=== PATIENT | male | born 1960 | race Caucasian/White ===

== ENCOUNTER → 2017-08-31 | Outpatient (CLI) | payer OTHER ==
[~2017-08-31] MED LIST: ACET-1311 PO; CPR500 PO; OXYC-57 PO
[2017-08-31 18:06] LABS: BASO % 0.3 %; BASO ABS # 0.02 K/uL (0-0.2); EOS % 1.7 %; HEMATOCRIT 43.9 % (42-52); HEMOGLOBIN 14.7 g/dL (14.0-18.0); IG# 0.01 K/uL (0.00-0.02); LYMPH % 29.5 %; LYMPH ABS # 1.79 K/uL (1.2-3.4); MEAN CELL VOLUME 87.6 fL (80-100); MEAN CORPUSCULAR HEMOGLOBIN 29.3 pg (25-34); MEAN CORPUSCULAR HGB CONC 33.5 g/dl (32-36); MEAN PLATELET VOLUME 10.8 fL (7.4-10.4); MONO % 9.6 %; MONO ABS # 0.58 K/uL (0.11-0.59); NEUT % 58.7 %; NEUT ABS # 3.56 K/uL (1.4-6.5); PLATELET COUNT 245 K/uL (130-400); RED CELL DISTRIBUTION WIDTH CV 12.9 % (11.5-14.5); RED CELL DISTRIBUTION WIDTH SD 41.1 fL (36.4-46.3); WHITE BLOOD COUNT 6.06 K/uL (4.8-10.8)
[2017-08-31 18:32] LABS: ALBUMIN 3.6 gm/dl (3.4-5.0); ALT/SGPT 52 U/L (12-78); AST/SGOT 33 U/L (15-37); BLOOD UREA NITROGEN 22 mg/dl (7-18); CALCIUM 8.7 mg/dl (8.5-10.1); CARBON DIOXIDE 26 mmol/L (21-32); CREATININE 1.35 mg/dl (0.60-1.40); GLUCOSE 87 mg/dl (70-99); POTASSIUM 4.2 mmol/L (3.5-5.1); SODIUM 140 mmol/L (136-145)
[2017-08-31 18:42] LABS: ALKALINE PHOSPHATASE 64 U/L (45-117); TOTAL PROTEIN 7.2 gm/dl (6.4-8.2)
== END | disposition home or self-care (01) ==
LOC: C.LABPVFM 15:50
PROVIDERS: ATTEND Family Medicine
DX: Z11.59 Encounter for screening for other viral diseases (principal); R25.1 Tremor, unspecified

== ENCOUNTER 2023-05-01 06:14 | Observation (INO) ==
--- NOTE | 2023-03-29 09:44 | PAT Medication Instructions ---
Medication Instructions Date of Service March 29, 2023 Home Medications Medication Instructions Recorded celecoxib 100 mg capsule 100 mg PO BID #60 caps 02/16/23 acetaminophen 325 mg capsule (Tylenol) 325 mg PO Q6H PRN celecoxib 100 mg capsule 100 mg PO BID amoxicillin 250 mg capsule 250 mg PO UD carbidopa 25 mg-levodopa 100 mg-entacapone 200 mg tablet 1 tab PO QAM carbidopa 37.5 mg-levodopa 150 mg-entacapone 200 mg tablet 1 tab PO BID Continue as directed amoxicillin 250 mg capsule 250 mg PO UD ASK your surgeon for instructions celecoxib 100 mg capsule 100 mg PO BID Take morning of surgery With a small sip of water, OTHERWISE NOTHING TO EAT OR DRINK AFTER MIDNIGHT: acetaminophen 325 mg capsule (Tylenol) 325 mg PO Q6H PRN(if needed) carbidopa 25 mg-levodopa 100 mg-entacapone 200 mg tablet 1 tab PO QAM carbidopa 37.5 mg-levodopa 150 mg-entacapone 200 mg tablet 1 tab PO BID Take evening before surgery acetaminophen 325 mg capsule (Tylenol) 325 mg PO Q6H PRN(if needed) carbidopa 37.5 mg-levodopa 150 mg-entacapone 200 mg tablet 1 tab PO BID Other Notes If you have any questions please call us at [phone] or [phone] or [phone] or [phone]
--- NOTE | 2023-03-30 09:22 | Anesthesiology Consultation ---
Date of Service March 30, 2023 Assessment & Plan (1) Encounter for pre-operative examination: Chart Review Chart Review: Acceptable Risk for Surgery and Patient seen in Pre Admission Testing Pseudocholinesterase deficiency (Family History- mother) Pt is NOT an OPJ candidate Per PAT appt on 03/30/23, no recent illness/disease exposures, illness related symptoms, or recent illness/disease positive tests. Will leave to surgeon's discretion if preop Covid testing needed Pt last seen by neuro 03/22/23= seen as telemedicine follow up for Parkinson disease. Pt admits to needing left hip surgery soon. The patient has suboptimal controlled Parkinsons due to partial non-adherence. He may have experienced some side effects with the higher dose of Stalevo. I recommended him to go to Stalevo 125 three times a day but he wants to use up his 150 and 100 mg tabs first. He will let us know when he is out. I have emphasized to take the medication on an empty stomach, at least 30 minutes prior to food intake. Next f/u in 4 months. Teaching & Discussion Pre-Anesthesia Teaching/Discussion Notes: Instructed NPO after midnight before surgery,except medications with 15 cc of water. Medication instructions provided according to the PAT guidelines. History Surgery Operation Date: 05/01/23 09:30 Proposed Procedures p Left Anterior Total Hip Arthroplasty - Malachi Fair DO Height/Weight Height: 5 ft 11 in Weight: 84.2 kg Allergies Allergy/AdvReac Type Severity Reaction Status Date / Time No Known Drug Allergies Allergy Verified 03/29/23 08:27 Medications Home Medications Medication Instructions Recorded Confirmed Last Taken acetaminophen 325 mg capsule 325 mg PO Q6H PRN Pain 04/07/19 03/29/23 Unknown (Tylenol) celecoxib 100 mg capsule 100 mg PO BID #60 caps 02/16/23 03/29/23 Unknown amoxicillin 250 mg capsule 250 mg PO UD 03/29/23 03/29/23 Unknown carbidopa 25 mg-levodopa 100 1 tab PO QAM 03/29/23 03/29/23 Unknown mg-entacapone 200 mg tablet carbidopa 37.5 mg-levodopa 150 1 tab PO BID 03/29/23 03/29/23 Unknown mg-entacapone 200 mg tablet Past Medical History Medical History Ambulatory dysfunction cane Elevated BP without diagnosis of hypertension Improved on rechecks Family history of pseudocholinesterase deficiency Mother - can not have "sux" - specifics unknown History of pneumonia as a child 2-3 years, fever was so high it created a line across his teeth and they didn't grow properly Osteoarthritis, hip, bilateral Parkinson disease Dx'ed 2018. 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 Trochanteric bursitis of left hip Improved from previous Exercise / Class Metabolic Activity II 4-5 Yardwork/Stairs/Walk up hill (one flight of stairs- no chest pain or SOB - ambulates with cane for support) Past Family History Family History Grandfather (Maternal) Myocardial infarction Denies family history of Ovarian cancer Prostate cancer Breast cancer Colorectal cancer Past Surgical History Surgical History Hx of colonoscopy Hx of eye surgery to have metal removed- early Hx of left cataract extraction Vision improved in left eye Hx of tonsillectomy S/P repair of hydrocele Past Anesthesia History No Hx of Anesthesia Complications (with exception to FH of presumed pseudocholinesterase deficiency- patient has not had formal testing), No Family Hx of Anesthesia Complications (mother- was told she can never have a medication known as "sux" and that her children may not be able to as well) and Pseudocholinesterase Deficiency (FH - mother ) History of PONV No Hx of PONV and No Hx of Motion Sickness Social History Smoking Status: Never smoker Do You Dip or Chew Tobacco: No (years ago; advised) Hx Alcohol Use: Yes alcohol intake frequency: holidays/special occasions only Hx Substance Use: No substance use type: does not use Review of Systems - Hx of snoring- no hx sleep study Patient denies chest pain, shortness of breath, dyspnea on exertion, reflux, cough, wheezing, palpitations. No hx of seizures, stroke, [place]. No hx of blood clots or blood transfusions Physical Exam Vital Signs VITALS BP 131/78 P 76 TEMP 97.5 SP02 97% RESP 16 Constitutional no acute distress ENMT Mouth: no TMJ clicking Thyromental Distance: > or= 3.5 Finger Breadths (3.5) Mallampati Class: III Missing molars [place]ill to side teeth molars Veneer to top front teeth Neck + limited neck extension (minimal) Respiratory normal respiratory effort; no respiratory distress Auscultation: lungs clear to auscultation bilaterally; no wheezes Cardiovascular Rate/Rhythm: regular rate and regular rhythm Heart Sounds: no murmur Vessels: no carotid bruit Musculoskeletal Spine: no pain with cervical ROM Extremities: extremities normal to inspection Psychiatric Orientation: alert Lab Results Anesthesia Preop Results Results Anesthesia Widget: WBC 5.61 K/ul (4.8-10.8) 03/30/23 Hgb 13.8 g/dl (14.0-18.0) L 03/30/23 Hct 42.6 % (42.0-52.0) 03/30/23 Plt 266 K/uL (130-400) 03/30/23 Na 139 mmol/L (136-145) 03/30/23 K 4.2 mmol/L (3.5-5.1) 03/30/23 Cl 106 mmol/L (98-107) 03/30/23 CO2 27 mmol/L (21-32) 03/30/23 BUN 21 mg/dl (6-23) 03/30/23 Creat 0.90 mg/dl (0.6-1.4) 03/30/23 Glucose Level 88 mg/dl (70-99(Fasting)) 03/30/23 PT 11.2 Seconds (9.0-12.0) 03/30/23 PTT 27.4 Seconds (21.0-31.0) 03/30/23 INR 1.0 (0.9-1.1) 03/30/23 Blood Type O Positive 03/30/23 Antibody Screen NEGATIVE 03/30/23 Testing Electrocardiogram Date: 03/30/23 Findings: + NSR @ (71bpm) Normal EKG per cardio Chest X-Ray Date: 03/30/23 FINDINGS: No lines and tubes are seen. The cardiomediastinal silhouette is normal. The lungs are clear. No evidence of pleural effusion or pneumothorax. IMPRESSION: No acute chest disease.
--- NOTE | 2023-05-01 06:04 | History & Physical Report ---
Date of Service May 01, 2023 Assessment & Plan (1) Osteoarthritis of left hip: We will proceed with a left anterior total of arthroplasty. Postoperatively he will be started on aspirin for DVT prophylaxis and kept overnight in the hospital for postop medical management. He will have the hospital set up physical therapy upon discharge. History of Present Illness Chief Complaint: Osteoarthritis of the left hip. Primary Care Provider: Tanvi Joshi MD Silviano is a pleasant 63-year-old male who has been dealing with Parkinson's disease. He has some weakness in his left quad. He has also been dealing with a lot of left hip pain. He is using a cane mostly because of his hip. He has trouble lying flat at night. He has mostly groin pain. He has been seeing my partner, Dr. Styles, who tried some hip injections. The injections were not beneficial. X-rays and clinical examination been diagnostic for advanced osteoarthritis of the left hip. After failing conservative treatment, he has elected to proceed with a left anterior total of arthroplasty. Allergies Allergy/AdvReac Type Severity Reaction Status Date / Time No Known Drug Allergies Allergy Verified 03/29/23 08:27 Home Medications Medication Instructions Recorded Confirmed Type acetaminophen 325 mg capsule 325 mg PO Q6H PRN Pain 04/07/19 03/29/23 History (Tylenol) celecoxib 100 mg capsule 100 mg PO BID #60 caps 02/16/23 03/29/23 Rx amoxicillin 250 mg capsule 250 mg PO UD 03/29/23 03/29/23 History carbidopa 25 mg-levodopa 100 1 tab PO QAM 03/29/23 03/29/23 History mg-entacapone 200 mg tablet carbidopa 37.5 mg-levodopa 150 1 tab PO BID 03/29/23 03/29/23 History mg-entacapone 200 mg tablet Past Med/Surg History Medical History Family history of pseudocholinesterase deficiency Mother - can not have "sux" - specifics unknown History of pneumonia as a child 2-3 years, fever was so high it created a line across his teeth and they didn't grow properly Elevated BP without diagnosis of hypertension Improved on rechecks Trochanteric bursitis of left hip Improved from previous Osteoarthritis, hip, bilateral Ambulatory dysfunction cane Parkinson disease Dx'ed 2018. 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 Surgical History Hx of colonoscopy S/P repair of hydrocele Hx of left cataract extraction Vision improved in left eye Hx of eye surgery to have metal removed- early Hx of tonsillectomy Family History Grandfather (Maternal) Myocardial infarction Denies family history of Ovarian cancer Prostate cancer Breast cancer Colorectal cancer Social History Smoking Status: Never smoker Second Hand Exposure: No; Do You Dip or Chew Tobacco: No (years ago; advised); Tobacco Cessation Education Requested by Patient: No Hx Alcohol Use: Yes Hx Substance Use: No Preferred Language: Greenlandic Communication Ability: Effective Visual Impairment: No Limitations Hearing Ability: Normal Leisure Studies Professor Required: No Beliefs That Will Affect Care: None marital status: Current Living Situation: Spouse current occupational status: employed current occupation: dan Other Information That Helps Us Care for You: No Feels Safe at Home: Yes Safety Concerns: Feels Safe At This Time caffeine: Yes Dental Care, Regularly: Yes Physical Activity Frequency: Daily Seatbelt Use: always Sunscreen Use: No Assistive Devices: Glasses Review of Systems All systems reviewed & are unremarkable except as noted in HPI & below. Physical Exam On physical examination left hip, he has some atrophy of his left quad from his Parkinson's. He has decreased range of motion of his hip. He has pain with internal and external rotation.. Constitutional WD/WN, vitals as above Eyes PERRL, conjunctivae normal, anicteric sclerae ENMT external ear and nose normal, oropharynx normal Neck trachea midline, no thyromegaly Respiratory normal respiratory effort Cardiovascular RRR, no murmur, no edema Gastrointestinal (Abdomen) normal bowel sounds, soft, nontender, no hepatosplenomegaly Psychiatric A+Ox3, euthymic affect Results & Data Results & Data Laboratory Results . Diagnostic Findings X-rays of the left hip and pelvis show advanced osteoarthritis with joint space narrowing, osteophyte formation, and [id number] articulation.. PG Care Time/CCT Total # of Minutes Spent Total Time Spent with Patient: Total time spent is greater than 50% in coordination of care (as documented) at patient's floor/unit and/or counseling patient: Coding Level of Care Code None Diagnoses Osteoarthritis of left hip M16.12
[~2023-05-01 06:14] MED LIST changes: -ACET-1311 PO; +ACETAMINOPHEN 500 MG TAB PO SCH; -CPR500 PO; +FAMOTIDINE 20 MG TAB PO SCH; +GABAPENTIN 600 MG DOSE PO SCH; +LR 500ML BOLUS, THEN 15ML/HR IV SCH; +LR 60ML/HR IV SCH; +ORTHO JOINT MIX INFIL SCH; -OXYC-57 PO; +TRANEXAMIC ACID 1,000 MG **IV Intra-op IV SCH; +TRANEXAMIC ACID 1,000 MG **IV Pre-op IV SCH; +ceFAZolin 2000MG 2,000 MG/15 ML SYR IV SCH; +dexAMETHasone 4 MG TAB PO SCH
[2023-05-01] MEDS ORDERED: BUPIVACAINE 0.5 % 5 MG/1 ML PF 10ML VIAL ONE (06:29)
--- OUTSIDE RECORDS SUMMARY | 2023-05-01 06:31 | External Medical Summary | Summary of Care ---
Author Name Unknown Organization [facility] Address [address] [place] [address] Phone [phone] Care Team Providers Care Breadman Name Role Phone Tanvi Laureano MD Primary Care Provider [phone] Reason for Visit * Reason Comments Return Neuro Encounter Details Date Type Department Care Team Description 03/22/2023 Telemedicine Neurology [facility] [address], [place] [id number] Rishabh Rothman MD [address] [place] [address] Primary parkinsonism* Allergies No known active allergiesdocumented as of this encounter (statuses as of 03/22/2023) Medications Medication Sig Dispensed Refills Start Date End Date Status Cinnamon 500 MG Capsule Take 1 Capsule by mouth in the morning. 0 Active Cyclobenzaprine HCl 10 MG Oral Tablet (Flexeril) Take 1 Tablet by mouth 3 times a day as needed. 0 08/11/2022 Active Celecoxib 100 MG Oral Capsule (CeleBREX) Take 1 Capsule by mouth in the morning and 1 Capsule before bedtime. 0 11/29/2022 Active Amoxicillin 250 MG Oral Capsule (Amoxil) TAKE 1 CAPSULE BY MOUTH EVERY 8 HOURS 0 12/14/2022 Active Chlorhexidine Gluconate 0.12 % Mouth/Throat Solution (Periogard) RINSE MOUTH WITH 15ML (1 CAPFUL) FOR 30 SECONDS IN MORNING AND EVENING AFTER BRUSHING, THEN SPIT 0 12/14/2022 Active Carbidopa-Levodopa- Entacapone 37.5-150-200 MG Oral TabletIndications:P rimary parkinsonism Take 1 tablet at [id number] Tablet 5 12/20/2022 03/22/2023 Discontinued (Medication/ Dose Changed) documented as of this encounter (statuses as of 03/22/2023) Active Problems Problem Noted Date After cataract not obscuring vision 08/03 Overview: ICD-10 update of inactive term documented as of this encounter (statuses as of 03/22/2023) Social History Tobacco Use Types Packs/Day Years Used Date Smoking Tobacco: Never Smokeless Tobacco: Never Tobacco Cessation:Counseling Given: Not Answered Alcohol Use Standard Drinks/Week Comments Not Currently 0 (1 standard drink = 0.6 oz pur e alcohol) Sex Assigned at Date Recorded Not on file Job Start Date Occupation Industry Not on file Not on file Not on file documented as of this encounter Last Filed Vital Signs Vital Sign Reading Time Taken Comments Blood Pressure 132/72 03/22/2023 3:51 PM EDT Pulse 73 03/22/2023 3:51 PM EDT Temperature 36.6 C (97.8 F) 03/22/2023 3:51 PM ED T Respiratory Rate 16 03/22/2023 3:51 PM EDT Oxygen Saturation 98% 03/22/2023 3:51 PM EDT Inhaled Oxygen Concentration - - Weight 85 kg (187 lb 8 oz) 03/22/2023 3:51 PM ED T Height - - Body Mass Index - - documented in this encounter Patient Instructions * Patient Instructions* Rishabh Rothman MD - 03/22/2023 4:07 PM EDT Take carbidopa/Levodopa/Entacapone half an hour before you eat. You can alternate between the 150mg and the 100mg strength to use up all your pills. Call us beforeyou run out. Please take it three times a day. documented in this encounter Progress Notes * Rishabh Rothman MD - 03/22/2023 3:43 PM EDT The patient was actually scheduled for telemedicine visit but is here in person. 03/22/2023 3:43 PM Silviano Salmon 63 year old male Ref: TANVI LAUREANO[[id number]] [address] [place] [address] (office) [phone] (fax) Asked by Tanvi Laureano MD to render opinion regarding follow-up management of Parkinson's CC: No chief complaint on file. HPI: The patient was last seen 3 months ago to help manage his tremor dominant Parkinson's which was diagnosed 5 years ago and initially treated by a specialist in [place]. Last time, I increased thedose of the generic of Stalevo to 150 milligrams 3 times a day after he was complaining of motor fluctuations with wearing off earlier. He was taking it only twice a day after he was concerned about his urine discoloration. I also recommended him to get a melanoma screen. He denies any hallucinations, has not had any falls or near falls. Normal stool consistency. Mood is good. Sometimes word-finding problems. Some sleep enactment. Last levodopa dose was at 8AM, so 8 hours ago. He admits that he was taking Stalevo with food. He says that he will need left hip surgery soon. PAST MEDICAL HISTORY: Patient Active Problem List Diagnosis Date Noted After cataract not obscuring vision [H26.499] 08/29/2005 ICD-10 update of inactive term MEDICATIONS: Current Outpatient Medications Medication Sig Dispense Refill Cinnamon 500 MG Capsule Take 500 mg by mouth daily. (Patient not taking: Reported on 08/21/2022) Cyclobenzaprine HCl 10 MG Oral Tablet (Flexeril) Take 1 Tablet by mouth 3 times a day as needed. (Patient not taking: Reported on 12/20/2022) Celecoxib 100 MG Oral Capsule (CeleBREX) Take 1 Capsule by mouth in the morning and 1 Capsule before bedtime. Amoxicillin 250 MG Oral Capsule (Amoxil) TAKE 1 CAPSULE BY MOUTH EVERY 8 HOURS Chlorhexidine Gluconate 0.12 % Mouth/Throat Solution (Periogard) RINSE MOUTH WITH 15ML (1 CAPFUL) FOR 30 SECONDS IN MORNING AND EVENING AFTER BRUSHING, THEN SPIT [id number]-[id number] 37.5-150-200 MG Oral Tablet Take 1 tablet at [id number] Tablet 5 No current facility-administered medications for this visit. ALLERGIES: Review of patient's allergies indicates: No Known Allergies Social History Socioeconomic History Marital status: Spouse name: Not on file Number of children: Not on file Years of education: Not on file Highest education level: Not on file Occupational History Not on file Tobacco Use Smoking status: Never Smokeless tobacco: Never Vaping Use Vaping Use: Never used Substance and Sexual Activity Alcohol use: Yes Drug use: No Sexual activity: Not on file Other Topics Concern Not on file Social History Narrative Not on file Social Determinants of Health Financial Resource Strain: Not on file Food Insecurity: Not on file Transportation Needs: Not on file Physical Activity: Not on file Stress: Not on file Social Connections: Not on file Intimate Partner Violence: Not on file Housing Stability: Not on file FAMILY HISTORY No family history on file. No family status information on file. REVIEW OF SYSTEMS: The patient denies new cardiac, lung, kidney, liver, skin, thyroid, bladder, or digestive problems.The patient also denies acute changes in hearing or vision. Otherwise, all other systems are negative or as noted above. There were no vitals taken for this visit. The patient is a 63 year old male who is well developed and appears to be their stated age. NEUROLOGIC EXAMINATION: Mental status: Intact higher integrative functions. Orientated to person, place, and time. Recent and remote memory functions are intact. Attention, concentration, language, and fund of knowledge arenormal. Judgment and insight are intact. Mood and affect are normal. He is completely OFF. Bradykinetic, rigid, tremulous. Walks with a cane. IMPRESSION: The patient has suboptimal controlled Parkinsons due to partial non-adherence. He may have experienced some side effects with the higher dose of Stalevo. RECOMMENDATIONS: I recommended him to go to Stalevo 125 three times a day but he wants to use up his 150 and 100 mg tabs first. He will let us know when he is out. I have emphasized to take the medication on an emptystomach, at least 30 minutes prior to food intake. Next f/u in 4 months. Thank-you for letting me participate in the care of this patient. Rishabh Rothman MD Neurology [facility] [address] [place] [address] Please send copy to requesting physician, Tanvi Laureano MD documented in this encounter Nursing Notes * Angelique Gómez LPN - 03/22/2023 3:52 PM EDT Chief Complaint Patient presents with Return Neuro documented in this encounter Plan of Treatment Upcoming Encounters Date Type Specialty Care Team Description 07/26/2023 Office Visit Neurology Rishabh Rothman MD [address] [place] [address] Health Maintenance Due Date Last Done Comments Lipid Panel 1961 COVID-19 Vaccine (#1) 1961 Depression Screening 1973 HIV Screening 01/04/1976 Hepatitis C Screening 1979 Cologuard 2006 Colonoscopy 2006 Colorectal Cancer Screening 2006 Fecal Occult Blood Test 2006 Sigmoidoscopy 2006 Zoster Vaccines (1 of 2) 2011 Influenza Vaccine (FLU shot) (#1) 2023 03/30/2020, 03/30/2020 DTaP,Tdap,and Td Vaccines (2 - Td or Tdap) 09/06/2028 09/06/2018 GARDASIL-HPV IMMUNIZATION SERIES Aged Out No longer eligible b ased on patient's age to complete this topic Hepatitis B Aged Out No longer eligi ble based on patient's age to complete this topic MENINGOCOCCAL (MENACTRA/MENVEO) Aged Out No longer eligible b ased on patient's age to complete this topic Pneumococcal Vaccine: Pediatrics (0 to 5 Years) and At-Risk Patients (6 to 64 Years) Aged Out No longer eligible b ased on patient's age to complete this topic documented as of this encounter Medical Devices Not on filedocumented as of this encounter Visit Diagnoses Diagnosis Primary parkinsonism- Primary Paralysis agitans documented in this encounter Care Teams Breadman Relationship Specialty Start Date End Date Tanvi Laureano MD [address] [facility] [place] [id number] PCP - General Family Medicine 08/21/22 documented as of this encounter
--- OUTSIDE RECORDS SUMMARY | 2023-05-01 06:31 | External Medical Summary | Summary of Care ---
Author Name Unknown Organization [facility] Address [address] [place] [address] Phone [phone] Care Team Providers Care Line Supply Name Role Phone Tanvi Joshi MD Primary Care Provider Reason for Visit * Reason Comments Return Neuro Encounter Details Date Type Department Care Team Description 12/20/2022 Office Visit Neurology [facility] [address], [place] [id number] Rishabh Gillette MD [address] [place] [address] Primary parkinsonism (HCC)*; REM sleep behavior disorder Allergies No known active allergiesdocumented as of this encounter (statuses as of 12/20/2022) Medications Medication Sig Dispensed Refills Start Date End Date Status Cinnamon 500 MG Capsule Take 500 mg by mouth daily. 0 Active Cyclobenzaprine HCl 10 MG Oral [...] Entacapone 37.5-150-200 MG Oral TabletIndications:P rimary parkinsonism (HCC) Take 1 tablet at [id number] 90 Tablet 5 12/20/2022 Active Carbidopa-Levodopa- Entacapone 25-100-200 MG Oral TabletIndications:P rimary parkinsonism (HCC) Take 1 Tablet by mouth in the morning and 1 Tablet at noon and 1 Tablet in the evening. Please take at [id number]. 90 Tablet 5 08/21/2022 12/20/2022 Discontinued (Medication/ Dose Changed) documented as of this encounter (statuses as of 12/20/2022) Active Problems Problem Noted Date After cataract not obscuring vision 08/03 Overview: ICD-10 update of inactive term documented as of this encounter (statuses as of 12/20/2022) Social History Tobacco Use Types Packs/Day Years Used Date Smoking Tobacco: Never Smokeless Tobacco: Never Alcohol Use Standard Drinks/Week Comments Yes 0 (1 standard drink = 0.6 oz pur e alcohol) Sex Assigned at Date Recorded Not on file Job Start Date Occupation Industry Not on file Not on file Not on file documented as of this encounter Last Filed Vital Signs Vital Sign Reading Time Taken Comments Blood Pressure 135/74 12/20/2022 9:24 AM EDT Pulse 73 12/20/2022 9:24 AM EDT Temperature 36.3 C (97.4 F) 12/20/2022 9:24 AM ED T Respiratory Rate - - Oxygen Saturation - - Inhaled Oxygen Concentration - - Weight 84.2 kg (185 lb 9.6 oz) 12/20/2022 9:24 A M EDT Height - - Body Mass Index - - documented in this encounter Progress Notes * Rishabh Gillette MD - 12/20/2022 9:20 AM EDT 12/20/2022 7:40 AM Silviano Salmon 62 year old male Ref: RISHABH GILLETTE[[id number]] [address] [place] [address], [place] [address] (office) [phone] (fax) Asked by Tanvi Joshi MD to render opinion regarding management of Parkinson's CC: No chief complaint on file. HPI: The patient was last seen 4 months ago. He has tremor dominant Parkinson's. I switched him to the generic of Stalevo 100 3 times a day for steadier serum levels as he was previously underdosed with just slow release carbidopa levodopa. He has not seen much of a difference yet. He also has REM sleep behavior disorder for which I recommended a trial of ZzzQuil melatonin triple action. I also recommended an annual melanoma screen. He did not take Melatonin yet, does not recall that we talked about getting a melanoma screen. He has mild memory problems, endorses word-finding difficulty. Denies any hallucinations, has reduced sense of smell. Some drooling. No falls. No constipation. Mood is OK. He is on also on a muscle relaxer at bedtime. His last dose of Carbidopa/Levodopa was at 4AM which is 5.5 hours ago. He has been noticing tremor for the past hour. Has soreness in his shoulder. PAST MEDICAL HISTORY: Patient Active Problem List [...] mouth 3 times a day as needed. Bjzbzlaow-Tyalchkm-Mpfjqeqvnf 25-100-200 MG Oral Tablet Take 1 Tablet by mouth in the morning and 1 Tablet at noon and 1 Tablet in the evening. Please take at [id number]. 90 Tablet 5 No current facility-administered medications [...] for this visit. The patient is a 62 year old male who is well developed and appears to be their stated age. NEUROLOGIC EXAMINATION: Mental status: Intact higher integrative functions. Orientated to person, place, and time. Recent and remote memory functions are intact. Attention, concentration, language, and fund of knowledge arenormal. Judgment and insight are intact. Mood and affect are normal. Cranial nerves: hypomimia Bradykinesia, moderate on the left, mild to moderate on the R. Some cogweeling rigidity on the left. Resting tremor on the left. Camptocormia, Reduced armswing on the R. Slow turns, good postural stability. Narrow base. IMPRESSION: Patient with suboptimally controlled tremor dominant Parkinson's. He needs a higher dose of Stalevo. Has motor fluctuations. Wears off sooner. He says he sleeps good, does not need melatonin. RECOMMENDATIONS: I will increase Stalevo to by 50% to 150tab three times a day. He will let us know in 1 week if it works for him. He was again advised to see a special services coordinator to get a melanoma screen. Thank-you for letting me participate in the care of this patient. Rishabh Gillette MD Neurology [address] [address] Please send copy to requesting physician, Tanvi oJshi MD documented in this encounter Nursing Notes * Doreen Reese LPN - 12/20/2022 9:23 AM EDT Return patient documented in this encounter Plan of Treatment Upcoming Encounters Date Type Specialty Care Team Description 03/22/2023 Telemedicine Neurology Rishabh Gillette MD [address] [facility] [place] [address] Health Maintenance Due Date Last Done Comments Lipid Panel 1960 COVID-19 Vaccine (#1) 1960 Depression Screening, Annual for Pts 12 and Over 1973 HIV Screening 01/04/1976 Hepatitis C Screening [...] of this encounter Visit Diagnoses Diagnosis Primary parkinsonism (HCC)- Primary Paralysis agitans REM sleep behavior disorder documented in this encounter Care Teams Line Supply Relationship Specialty Start Date End Date Tanvi Joshi MD [address] [facility] [place] [address] PCP - General Family Medicine 08/21/22 documented as of this encounter
[2023-05-01] MEDS ORDERED: LIDOCAINE 2% 2 ML VIAL/AMP(20MG/ML) INFIL ONE (07:08)
[2023-05-01] MEDS ORDERED: fentaNYL citrate PF 100 MCG/2 ML VIAL ONE (07:08)
[2023-05-01] MEDS ORDERED: PROPOFOL IV EMULSION 10 MG/ML 20 ML VIAL IV ONE (07:08)
[2023-05-01] MEDS ORDERED: MIDAZOLAM HCL 1 MG/ML 2ML VIAL ONE (07:08)
[2023-05-01] MEDS ORDERED: ATROPINE SULFATE 0.1 MG/ML 10ML SYR IV PRN (07:24)
[2023-05-01] MEDS ORDERED: fentaNYL citrate PF 100 MCG/2 ML VIAL IV PRN (07:24)
[2023-05-01] MEDS ORDERED: ePHEDrine sulfate 50 MG/ML AMP IV PRN (07:24)
[2023-05-01] MEDS ORDERED: ONDANSETRON INJ 2 MG/ML 2 ML VIAL IV PRN ×2 (07:24→11:01)
[2023-05-01] MEDS ORDERED: ORTHO JOINT ANESTHETIC ONE (07:32)
[2023-05-01] MEDS ORDERED: ePHEDrine sulfate 50 MG/ML AMP ONE (09:22)
--- NOTE | 2023-05-01 09:39 | Operative Report ---
PG Post Operative Report Pre & Post Diagnosis Operation Date: 05/01/23 08:00 Pre-Op Diagnosis: Left Hip Degenerative Joint Disease Post-Op Diagnosis: Left Hip Degenerative Joint Disease I identified the patient and participated in the time-out.: Yes Procedure Operation Date: 05/01/23 08:00 Actual Procedures p Left Anterior Total Hip Arthroplasty(Left) - Malachi Fair DO Surgeon Malachi Fair DO [employer] Mark Banks PA-C Estimated Blood Loss 300 Findings Consistent with Post-Op Diagnosis Specimens Left femoral head Description of Procedure Implants used I used a ZimmerBiomet total hip arthroplasty system with a size 4 high offset Avenir Complete stem, a 54 mm G7 cup with a 25mm screw, an E1 polyethylene li ner, a 40 mm ceramic head with a +7 neck. Silviano arrived at the hospital for the above procedure. He was seen in the preoperative holding area and the operative extremity was identified and signed. He was given a spinal anesthetic, a preoperative antibiotic, and TXA. He was then taken back to the operating room and laid on the table in the supine position. He was given basic sedation. The operative leg was secured to a Puristst leg positioner. The hip was then prepped and draped in sterile fashion. A timeout was done and the patient and the operative extremity was properly identified. An anterior approach was used. Dissection was taken down through the fascia and the tensor muscle belly was retracted laterally and the rectus was retracted medially. The circumflex vessels were identified and ligated. The capsule was then incised and tagged for later repair. The femoral neck was then cut and the femoral head was removed. The acetabulum was exposed. Time was spent doing a complete circumferential labral release. Sequential reaming of the acetabulum up to a size 53 reamer was done. Final reamings were done under fluoroscopy to ensure appropriate version. A Biomet 54 mm G7 cup was then impacted into place. A single 25 mm screw was placed. The E1 polyethylene liner was then snapped into place. Surrounding soft tissues were then injected with 100 cc of an orthopedic pain control cocktail. The proximal femur was then exposed. Sequential broaching up to a size 4 broach was done. Off that broach a size 40 head with a +7 neck was trialed. The hip was reduced and fluoroscopic images showed anatomic alignment of the implants in acceptable length. The broach was removed. The final size 4 high offset Avenir Complete stem was then impacted into place. A ceramic 40 mm head with a +7 neck was then impacted onto the stem and the hip was reduced. Final fluoroscopic images showed anatomic alignment of the hip. The capsule was then closed with #1 Vicryl suture. A dilute betadyne lavage was then done for 3 minutes. The joint was then irrigated with normal saline solution. The fascia was closed with #1 PDS suture. Skin was closed with 2-0 Vicryl, joellen, and a Silverlon dressing. He was then transferred to a hospital bed and taken to the post anesthesia care unit in stable condition. He tolerated the procedure well. Mark Banks PA-C, was present for the entire procedure. He was critical for patient positioning, prepping, draping, retraction exposure, wound closure and application of sterile dressing. I attest to the content of the Intraoperative Record and any orders documented therein. Any exceptions are noted below.
--- NOTE | 2023-05-01 10:42 | Anesthesiology Progress Note ---
Date of Service May 01, 2023 Anesthesia Post Procedure Vital Signs Vital Signs: Temp Pulse Pulse Resp BP Pulse Ox O2 Del Method 05/01/23 10:30 57 L 15 126/74 96 Room Air 05/01/23 10:20 54 L 13 129/73 100 Nasal Cannula 05/01/23 10:10 56 L 14 121/73 100 Nasal Cannula 05/01/23 10:00 56 L 18 123/75 100 Nasal Cannula 05/01/23 09:53 36.3 C L 62 20 108/68 99 Nasal Cannula 05/01/23 07:00 37.2 C 67 18 157/95 H 98 Room Air O2 Flow Rate 05/01/23 10:30 05/01/23 10:20 2 05/01/23 10:10 2 05/01/23 10:00 4 05/01/23 09:53 4 05/01/23 07:00 Pain Intensity Left Hip: Pain Intensity: 8 Transfer of Care Handoff Completed per policy Notes Mental Status: alert / awake / arousable Patient Amnestic to Procedure: Yes Nausea / Vomiting: adequately controlled Pain: adequately controlled Airway Patency, RR, SpO2: stable & adequate BP & HR: stable & adequate Hydration State: stable & adequate Neuraxial Anesthesia: was administered and sensory block is resolving Anesthetic Complications: no major complications apparent
[2023-05-01] MEDS ORDERED: MAGNESIUM HYDROXIDE SUSP 30 ML UDC PO PRN (11:01)
[2023-05-01] MEDS ORDERED: HYDROmorphone INJ 0.5 MG/0.5 ML SYR IV PRN (11:01)
[2023-05-01] MEDS ORDERED: METOCLOPRAMIDE HCL INJ 5 MG/ML 2 ML VIAL IV PRN (11:01)
[2023-05-01] MEDS ORDERED: NALOXONE HCL 0.4 MG/1 ML VIAL/CARP IV PRN (11:01)
[2023-05-01] MEDS ORDERED: bisacodyL 10 MG SUPP PR PRN (11:01)
[2023-05-01] MEDS ORDERED: oxyCODONE HCL IR 5 MG TAB (IMMEDIATE RELEASE) PO PRN (11:01)
--- NOTE | 2023-05-01 11:43 | Fluoroscopy Report ---
INTRAOPERATIVE RADIOGRAPH CLINICAL HISTORY: Left hip arthroplasty. Fluoro time: 20 seconds Ka,r: 2.29 mGy FINDINGS: A single spot fluoroscopic image of the left hip as presented. A bipolar left hip arthropla sty is in near anatomic alignment. A single cortical lag screw transfixes the acetabular cup. There i s no evidence of acute fracture on this fluoroscopic view. IMPRESSION: Intraoperative image from a left upper outer posterior procedure. Electronically signed by: Brent Lisa M.D. 05/01/2023 11:41 AM
--- NOTE | 2023-05-01 12:09 | XRay Report ---
SINGLE VIEW PELVIS; SINGLE VIEW LEFT HIP CLINICAL HISTORY: Postoperative examination. FINDINGS: An AP portable view of the hips and pelvis with a crosstable lateral portable view of the l eft hip are compared to study dated 07/04/2022. A bipolar left hip arthroplasty is in near-anatomic al ignment. A single cortical lag screw transfixes the acetabular cup. No acute fracture is identified. There are expected postoperative changes overlying the left hip including skin clips, subcutaneous ga s, and soft tissue swelling. Survey images of the right hip show moderate arthritic change and joint space narrowing. Surgical clips project over the scrotum. Phleboliths are noted in the pelvis. IMPRESSION: Expected postoperative findings status post left hip arthroplasty. No acute fracture is s een. ACT 112: Negative or not required by law. Electronically signed by: Brent Lisa M.D. 05/01/2023 12:08 PM
[2023-05-01] MEDS: CARBIDOPA/LEVODOPA 25/100MG TAB PO SCH ×2 (12:22→21:28)
[2023-05-01] MEDS: SODIUM CHLORIDE 0.9% 1,000 ML IV SCH ×2 (13:44→22:14)
[2023-05-01] MEDS: ENTACAPONE 200 MG TAB PO SCH ×3 (13:46→22:13)
[2023-05-01] MEDS: KETOROLAC 30 MG/ML VIAL IV SCH ×3 (13:47→23:16)
[2023-05-01] MEDS: ceFAZolin 2000MG 2,000 MG/15 ML SYR IV SCH ×2 (17:26→23:16)
[2023-05-01] MEDS ORDERED: SENNA 8.6 MG TAB PO SCH (21:00)
[2023-05-01] MEDS: ASPIRIN 81 MG ECTAB PO SCH (21:29)
[2023-05-01] MEDS: DOCUSATE SODIUM 100 MG CAP PO SCH (21:39)
[2023-05-02] MEDS: KETOROLAC 30 MG/ML VIAL IV SCH (05:30)
[2023-05-02 07:41] VITALS: BP 149/82; PULSE 68; RESP 18; TEMP 97.7; O2SAT 99
[2023-05-02] MEDS: ENTACAPONE 200 MG TAB PO SCH ×2 (07:54→12:06)
[2023-05-02] MEDS: ASPIRIN 81 MG ECTAB PO SCH (07:55)
[2023-05-02] MEDS: DOCUSATE SODIUM 100 MG CAP PO SCH (07:56)
[2023-05-02] MEDS ORDERED: dexAMETHasone 4 MG TAB PO SCH (08:00)
--- NOTE | 2023-05-02 08:52 | Hospitalist Progress Note ---
Date of Service May 02, 2023 Assessment & Plan (1) Status post left hip replacement: Plan: s/p Left Anterior Total Hip Arthroplasty(Left) - Malachi Fair DO on 05/01. EBL 300cc Pain control/bowel regimen/PT/OT per primary service DVT prophylaxis: ASA 81mg BID per primary service Labs from AM pending (2) Parkinson disease: Plan: continue home sinemet, comtan Admission and Anticipated Discharge Date Admission Date: May 01, 2023 Results & Data Results & Data Vital Signs (Past 12 Hours) Vital Signs Temp Pulse Resp BP Pulse Ox O2 Del Method 05/02/23 07:36 36.5 C 68 18 149/82 H 99 Room Air 05/02/23 03:39 36.6 C 73 15 123/69 97 Room Air 05/01/23 23:31 36.3 C L 69 16 117/69 95 Room Air PG Care Time/CCT Total # of Minutes Spent Total Time Spent with Patient: Total time spent is greater than 50% in coordination of care (as documented) at patient's floor/unit and/or counseling patient: Coding Diagnoses Status post left hip replacement Z96.642 Parkinson disease G20
[2023-05-02] MEDS ORDERED: CARBIDOPA/LEVODOPA 25/100MG TAB PO SCH (09:00)
[2023-05-02] MEDS ORDERED: MULTIVITAMIN TAB PO SCH (09:00)
[2023-05-02 09:20] LABS: Hematocrit (blood only) 38.6 % (42.0-52.0); Hemoglobin 12.9 g/dl (14.0-18.0); Mean Corpuscular Hemoglobin 29.9 pg (25.0-34.0); Mean Corpuscular Hgb Conc 33.4 g/dL (32.0-36.0); Mean Corpuscular Volume 89.4 fL (80.0-100.0); Mean Platelet Volume 10.3 fL (9.4-12.4); Platelet Count 210 K/uL (130-400); RDW Coefficient of Variation 12.2 % (11.5-14.5); RDW Standard Deviation 40.3 fL (36.4-46.3); Red Blood Count 4.32 M/uL (4.70-6.10); White Blood Count 12.56 K/ul (4.8-10.8)
[2023-05-02 09:40] LABS: BUN Creatinine Ratio 26.5 (10-20); Creatinine Clr Calc Pharmacy 98.3 ml/min; Est GFR (African American) 109.3 ml/min; Est GFR (Non-African American) 94.3 ml/min; Potassium 4.1 mmol/L (3.5-5.1)
--- NOTE | 2023-05-02 09:49 | Orthopedic Progress Note ---
Date of Service May 02, 2023 Assessment & Plan (1) Status post left hip replacement: Overall he is doing very well today with not much discomfort to the left hip. He will be seen by physical therapy today for ambulation and range of motion exercises. He is on aspirin for DVT prophylaxis. He can be discharged home later today. He will follow-up with orthopedics in 2 weeks for postoperative care. Subjective . Silviano was seen and evaluated at bedside today in no apparent distress. He states that his pain is well-controlled today to the left hip feels much better than preoperative state. He has been up and out of bed and ambulating to the bathroom. He has no concerns today. Review of Systems All systems reviewed & are unremarkable except as noted in HPI & below. Physical Exam . On physical examination of the left hip, dressing is clean, dry, and intact. His leg is out in full extension. He has active plantarflexion dorsiflexion to the left ankle. +2 DP and PT pulses. Less than 2-second capillary refill. Normal sensation. Neurovascular intact. Results & Data Results & Data Laboratory Results . Diagnostic Findings . Postoperative x-rays of the left hip show prosthesis to be in anatomical alignment without any evidence of fracture complication or loosening. PG Care Time/CCT Total # of Minutes Spent Total Time Spent with Patient: Total time spent is greater than 50% in coordination of care (as documented) at patient's floor/unit and/or counseling patient: Coding Level of Care Code 59619 Post Operative Follow-Up Diagnoses Status post left hip replacement Z96.642
--- NOTE | 2023-05-02 09:50 | Discharge Summary ---
Date of Service May 02, 2023 Admission HPI (Per Admitting) Silviano is a pleasant 63-year-old male who has been dealing with Parkinson's disease. He has some weakness in his left quad. He has also been dealing with a lot of left hip pain. He is using a cane mostly because of his hip. He has trouble lying flat at night. He has mostly groin pain. He has been seeing my partner, Dr. Styles, who tried some hip injections. The injections were not beneficial. X-rays and clinical examination been diagnostic for advanced osteoarthritis of the left hip. After failing conservative treatment, he has elected to proceed with a left anterior total of arthroplasty. Admission Exam (Per Admitting) On physical examination left hip, he has some atrophy of his left quad from his Parkinson's. He has decreased range of motion of his hip. He has pain with int ernal and external rotation.. Principal Diagnosis Same as "Discharge Diagnosis" noted below under Discharge Instructions. Discharge Exam . On physical examination of the left hip, dressing is clean, dry, and intact. His leg is out in full extension. He has active plantarflexion dorsiflexion to the left ankle. +2 DP and PT pulses. Less than 2-second capillary refill. Normal sensation. Neurovascular intact. Discharge Data Procedures Performed Operation Date: 05/01/23 08:00 Actual Procedures p Left Anterior Total Hip Arthroplasty(Left) - Malachi Fair DO Ordered Studies 05/01/23 08:00 FL hip LT 1V Routine Hospital Course (1) Status post left hip replacement: On May 01, 2023 Silviano arrived at [facility] and underwent a left hip replacement. He had a spinal anesthetic. Postoperatively, he was started on aspirin and transferred to the general orthopedic floor in stable condition. His hospital course was uneventful. On postoperative day #1, his vital signs were stable and his pain was well-controlled. He worked well with physical therapy doing ambulation and range of motion exercises. He was then discharged home. He will follow-up in 2 weeks with orthopedics for postoperative care. PG Care Time/CCT Total # of Minutes Spent Total Time Spent with Patient: Total time spent is greater than 50% in coordination of care (as documented) at patient's floor/unit and/or counseling patient: Discharge Plan Discharge Items Patient Disposition: Home - Home Health Services Reason For Visit: POST SURGICAL CARE Discharge Diagnosis: Left hip replacement Activity: Per Instructions section Non-emergency contact: Surgeon Call non-emergency contact if: your wound has increased redness and your wound has increased drainage Follow-up/Referrals: Tanvi Joshi MD [Primary Care Provider] - Diet: Regular Addtl Attending Provider Instructions: Activity and Therapy Recommendations: * If you are using [facility] then therapy will be provided at your home until they feel you have accomplished all of your goals. * If you are using [facility] then Physical Therapy will be provided until they feel you are ready to start Outpatient Physical Therapy. * If you are not using home therapy then Outpatient Physical Therapy should start about 3-5 days from your day of surgery. Therapy will last about 6-10 weeks * You were shown a series of exercises in the hospital. Do these exercises three times each day including the exercises you were shown in physical therapy. * Get up and walk several times each day.~ For the first four weeks, try not to stand or walk for more than one hour at a time. If you do stand or walk for more than one hour, you will not hurt anything, but your leg will likely swell.~~ * As you feel comfortable, you may change from the walker or crutches to a cane and~then to independent walking. Medications: * Narcotic You will likely be sent home from the hospital with a prescription for the narcotic pain medication that worked best throughout your stay. * Cefadroxil -take the antibiotic twice a day for 10 days to prevent infection. * Aspirin Most patients will be required to take Aspirin 81mg twice a day for 6 weeks after surgery. This is obtained [id number]-gsazick and a prescription is not necessary. * Other medications may be prescribed for specific circumstances. If you have any questions, please call the office at . * Resume previous home medications unless otherwise instructed TEDs/Elastic Stockings: The white elastic stockings help limit swelling and prevent blood clots from forming in your legs. The more you wear them, the more they work. Wear them for six weeks. Dressing Care: Leave the Silverlon dressing in place for 7 days. After 7 days you may remove the dressing. If the incision is not draining then you may leave the joellen open to air. If there is a little bit of drainage or if the joellen are getting stuck on your clothing then cover the incision with a dry dressing. The joellen will be removed at your 2 week follow-up appointment. Showering: You may shower with the Silverlon dressing in place. Do not let the shower spray hit the dressing directly. Pat the Silverlon dressing dry. If the dressing becomes wet underneath, then simply remove the dressing. Keep the incision dry until you are 7 days out from the day of surgery. After 7 days you may remove the Silverlon dressing and shower with the joellen exposed. Let soapy water run over the joellen and pat them dry. Do not scrub or soak the incision. Things To Watch For: * Drainage from the incision site that occurs more than one week after your surgery. * Increased redness at the incision site. * Fever above 102 degrees Fahrenheit. * Unusual chest pain or shortness of breath. * Call [facility] at with any of the above problems Follow-Up Visit: Follow-up with Dr. Fair's PA (Malachi Jacome) 2-3 weeks after your day of surgery. He will remove your joellen and answer any questions. If you have any additional questions or concerns, Dr Fair is usually in the office at the same time and will be available An appointment was probably scheduled when you signed-up for surgery in the office. If you have any questions call Office Instructions: More detailed instructions as well as Frequently Asked Questions were provided in a folder by our office when you signed-up for surgery. Please review these instructions when you get home. If you have any further questions or concerns, please feel free to call the office at [phone] Pending Studies at Discharge: No Stand-Alone Forms: [facility], Smoking Cessation Medications and DC Order Prescriptions: New aspirin 81 mg Tablet,Delayed Release (Dr/Ec) 81 mg PO BID 42 Days Qty: 84 0RF oxycodone 5 mg Tablet 5 - 10 mg PO Q6 PRN (Reason: pain) Qty: 30 0RF cefadroxil 500 mg capsule 500 mg PO BID 10 Days Qty: 20 0RF Continued acetaminophen [Tylenol] 325 mg capsule 325 mg PO Q6H PRN (Reason: Pain) wrmccknwa-nivepbdy-bnonrbxxtp 37.5-150-200 mg tablet 1 tab PO BID Rx Instructions: noon and bedtime hgagmwxzk-nzqgnxgm-itobehxahy 25-100-200 mg tablet 1 tab PO QAM Discontinued celecoxib 100 mg capsule 100 mg PO BID Qty: 60 2RF amoxicillin 250 mg capsule 250 mg PO UD Patient Comments: will finish on 03/30/23 Admission Data Admit Date/Time: 05/01/23 09:42 Attending Provider: Malachi Fair Admit Provider: Malachi Fair Primary Care Provider: Tanvi Joshi Other Interventions: Discharge Summary Assessment (RN) Last Done: 05/02/23 09:27
--- NOTE | 2023-05-02 10:00 | Hospitalist Consultation ---
Date of Consultation May 02, 2023 Assessment & Plan (1) Status post left hip replacement: s/p Left Anterior Total Hip Arthroplasty(Left) - Malachi Fair DO on 05/01. EBL 300cc Pain control/bowel regimen/PT/OT per primary service DVT prophylaxis: ASA 81mg BID per primary service WBC elevation suspected 2nd to steroids/stress of surgery. Afebrile Hgb stable 12.9 from 13.8, acute blood loss from surgery/dilutional from IVF. Asymptomatic Planning for discharge home per primary service (2) Parkinson disease: continued home medications, tremor at baseline. No issues Plan Thank you for allowing hospitalist service to participate in the care of MR Salmon. Patient stable for discharge. Please call with any questions/concerns. Supervising Physician Co-Signing Physician Notes The patient was not seen by me. The chart was reviewed. Case discussed with ZHENG Kelley. Agree with assessment and plan History of Present Illness Reason for Consultation: med management Requesting Physician: Dr Fair Attending Physician: Malachi Fair DO History of Present Illness 63yo female with PMHx parkinsonism presented for LEFT TKA with Dr Fair. Patient doing well post-op, pain well controlled, anticipating discharge home this morning. Tremor at baseline/not worse, on home medications. No fever/chills, chest pain, shortness of breath, abdominal pain. Passing gas. Questions/concerns addressed at this time. Allergies Allergy/AdvReac Type Severity Reaction Status Date / Time No Known Drug Allergies Allergy Verified 05/01/23 06:44 Home Medications Medication Instructions Recorded Confirmed Type acetaminophen 325 mg capsule 325 mg PO Q6H PRN Pain 04/07/19 05/01/23 History (Tylenol) carbidopa 25 mg-levodopa 100 1 tab PO QAM 03/29/23 05/01/23 History mg-entacapone 200 mg tablet carbidopa 37.5 mg-levodopa 150 1 tab PO BID 03/29/23 05/01/23 History mg-entacapone 200 mg tablet aspirin 81 mg tablet,delayed 81 mg PO BID 42 days #84 tabs 05/02/23 Rx release cefadroxil 500 mg capsule 500 mg PO BID 10 days #20 caps 05/02/23 Rx oxycodone 5 mg tablet 5 - 10 mg (1 - 2 x 5 mg) PO Q6 PRN 05/02/23 Rx pain #30 tabs Patient History Medical History Family history of pseudocholinesterase deficiency Mother - can not have "sux" - specifics unknown History of pneumonia as a child 2-3 years, fever was so high it created a line across his teeth and they didn't grow properly Elevated BP without diagnosis of hypertension Improved on rechecks Ambulatory dysfunction cane Parkinson disease Dx'ed 2018. 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 Surgical History Hx of colonoscopy S/P repair of hydrocele Hx of left cataract extraction Vision improved in left eye Hx of eye surgery to have metal removed- early Hx of tonsillectomy Family History Grandfather (Maternal) Myocardial infarction Denies family history of Ovarian cancer Prostate cancer Breast cancer Colorectal cancer Social History Smoking Status: Never smoker Second Hand Exposure: No; Do You Dip or Chew Tobacco: No (years ago; advised); Tobacco Cessation Education Requested by Patient: No Hx Alcohol Use: Yes Hx Substance Use: No Preferred Language: Filipino Communication Ability: Effective Visual Impairment: No Limitations Hearing Ability: Normal Refund Clerk Required: No Beliefs That Will Affect Care: None marital status: Current Living Situation: Spouse current occupational status: employed current occupation: [employer] Other Information That Helps Us Care for You: No Feels Safe at Home: Yes Safety Concerns: Feels Safe At This Time caffeine: Yes Dental Care, Regularly: Yes Physical Activity Frequency: Daily Seatbelt Use: always Sunscreen Use: No Assistive Devices: Cane and Walker Review of Systems 2 Review of Systems: All systems reviewed & are unremarkable except as noted in HPI & below Physical Exam 2 Physical Exam: General: WD/WN male sitting up in chair, dressed, NAD HEENT head atraumatic, normocephalic, mmm, trachea midline Resp; even/unlabored, no w/c/r, on room air CV: RRR, no significant m/r/g, no pitting edema GI: +BS, soft/nt ; no jolly MSK/Neuro: nonfocal, dressing to LEFT hip c/d/i, minimal tenderness, compartments soft/toes mobile, sensation intact, pulses palpable Psych: AOx3, cooperative, tremor at baseline reported (worse L hand) Results & Data Results & Data Vital Signs (Past 12 Hours) Vital Signs Temp Pulse Resp BP Pulse Ox O2 Del Method 05/02/23 09:27 36.5 C 68 18 99 05/02/23 09:00 Room Air 05/02/23 07:36 36.5 C 68 18 149/82 H 99 Room Air 05/02/23 03:39 36.6 C 73 15 123/69 97 Room Air 05/01/23 23:31 36.3 C L 69 16 117/69 95 Room Air Laboratory Results 05/02/23 09:06 05/02/23 09:06 Diagnostic Findings Hip X-Ray 05/01/23 08:00 INTRAOPERATIVE RADIOGRAPH CLINICAL HISTORY: Left hip arthroplasty. Fluoro time: 20 seconds Ka,r: 2.29 mGy FINDINGS: A single spot fluoroscopic image of the left hip as presented. A bipolar left hip arthroplasty is in near anatomic alignment. A single cortical lag screw transfixes the acetabular cup. There is no evidence of acute fracture on this fluoroscopic view. IMPRESSION: Intraoperative image from a left upper outer posterior procedure. Electronically signed by: Brent Lisa M.D. 05/01/2023 11:41 AM Hip/Pelvis X-Ray 05/01/23 09:42 SINGLE VIEW PELVIS; SINGLE VIEW LEFT HIP CLINICAL HISTORY: Postoperative examination. FINDINGS: An AP portable view of the hips and pelvis with a crosstable lateral portable view of the left hip are compared to study dated 07/04/2022. A bipolar left hip arthroplasty is in near-anatomic alignment. A single cortical lag screw transfixes the acetabular cup. No acute fracture is identified. There are expected postoperative changes overlying the left hip including skin clips, subcutaneous gas, and soft tissue swelling. Survey images of the right hip show moderate arthritic change and joint space narrowing. Surgical clips project over the scrotum. Phleboliths are noted in the pelvis. IMPRESSION: Expected postoperative findings status post left hip arthroplasty. No acute fracture is seen. ACT 112: Negative or not required by law. Electronically signed by: Brent Lisa M.D. 05/01/2023 12:08 PM PG Care Time/CCT Total # of Minutes Spent Total Time Spent with Patient: Total time spent is greater than 50% in coordination of care (as documented) at patient's floor/unit and/or counseling patient: Coding Level of Care Code 79809 IN/OBS CONSULT LVL 2,35M Diagnoses Status post left hip replacement Z96.642 Parkinson disease G20
[2023-05-02] MEDS: CARBIDOPA/LEVODOPA 25/100MG TAB PO SCH (12:06)
== END 2023-05-02 14:20 | disposition home health service (06) ==
LOC: PACUINP 06:14 → ASU 06:14 → 3N 13:09
DX: M16.12 Unilateral primary osteoarthritis, left hip; Z79.899 Other long term (current) drug therapy